=== PATIENT | male | born 1965 | race Caucasian/White ===

== ENCOUNTER 2016-10-28 16:40 | Emergency (ER) | payer OTHER ==
[~2016-10-28] VITALS: Ht 172.7 cm; Wt 77.0 kg
[~2016-10-28 16:40] MED LIST: ASPIR 8181 M1 PO; AUGMENTIN875 MG PO; CITALOPRAM HBR40 MG PO; DIOVAN; DIOVAN80 MG PO; FISH OIL SOFTG1 EACH PO; LIPITOR; LIPITOR40 MG PO; ZITHROMAX Z-PA250 MG PO
[2016-10-28] MEDS ORDERED: PERCOCET 5/31 TABLET PO (17:50)
[2016-10-28 18:55] VITALS: BP 136/84
== END 2016-10-28 18:58 | disposition home or self-care (01) ==
LOC: EME 16:40
PROC: 2W3EX1Z Immobilization of Right Hand using Splint (ICD-10-PCS; principal; 2016-10-28)
DX: S62.336A Displaced fracture of neck of fifth metacarpal bone, right hand, initial encounter for closed fracture (principal); W23.0XXA Caught, crushed, jammed, or pinched between moving objects, initial encounter; Y93.H2 Activity, gardening and landscaping; Y92.007 Garden or yard of unspecified non-institutional (private) residence as the place of occurrence of the external cause; I10 Essential (primary) hypertension; Z79.82 Long term (current) use of aspirin
CPT/HCPCS: 73130; 99281; 99284

== ENCOUNTER 2017-04-08 02:06 | Emergency (ER) | payer OTHER ==
[~2017-04-08] VITALS: Ht 172.7 cm; Wt 81.7 kg
[~2017-04-08 02:06] MED LIST changes: +PERCOCET 5/31 TABLET PO
[2017-04-08] MEDS ORDERED: AUGMENTIN875 MG PO (03:20)
[2017-04-08 03:41] VITALS: BP 133/78
== END 2017-04-08 03:41 | disposition home or self-care (01) ==
LOC: EME 02:06
DX: S70.361A Insect bite (nonvenomous), right thigh, initial encounter (principal); L03.115 Cellulitis of right lower limb; W57.XXXA Bitten or stung by nonvenomous insect and other nonvenomous arthropods, initial encounter; I10 Essential (primary) hypertension
CPT/HCPCS: 99281; 99284